=== PATIENT | female | born 1990 | race Caucasian/White ===

== ENCOUNTER 2024-01-12 23:25 | Observation (INO) ==
[2024-01-13] MEDS: SODIUM CHLORIDE 0.9% 1,000 ML IV ONE (00:09)
[2024-01-13 00:21] LABS: Appearance Urine Clear (Clear); Bacteria Urine Automated 1+ (None Seen); Bilirubin Urine Negative (Negative); Blood Urine Negative (Negative); Cast Urine Automated 0-2 /lpf (0-2); Color Urine Yellow; Epithelial Cell Urine Auto 0-2 /hpf (0-2); Glucose Urine UA Negative (Negative); Ketones Urine 1+ (Negative); Leukocyte Esterase Urine 2+ (Negative); Nitrite Urine Negative (Negative); Protein Urine Negative (Negative); Specific Gravity Urine 1.025 (1.000-1.030); Urobilinogen Urine Negative (Negative); WBC Urine Automated 21-50 /hpf (0-5)
[2024-01-13 00:37] LABS: Basophils # (auto) 0.06 K/uL (0.00-0.20); Basophils % (auto) 0.7 %; Eosinophils # (auto) 0.03 K/uL (0.00-0.50); Eosinophils % (auto) 0.4 %; Hematocrit (blood only) 43.6 % (37.0-47.0); Immature Granulocytes # (auto) 0.03 K/uL (0.01-0.20); Immature Granulocytes % (auto) 0.4 %; Lymphocytes # (auto) 0.61 K/uL (1.20-3.40); Lymphocytes % (auto) 7.2 %; Mean Corpuscular Hemoglobin 30.3 pg (25.0-34.0); Mean Corpuscular Hgb Conc 34.4 g/dL (32.0-36.0); Mean Corpuscular Volume 88.1 fL (80.0-100.0); Mean Platelet Volume 10.6 fL (9.4-12.4); Monocytes # (auto) 0.61 K/uL (0.11-0.59); Monocytes % (auto) 7.2 %; Neutrophils # (auto) 7.08 K/uL (1.40-6.50); Neutrophils % (auto) 84.1 %; Platelet Count 193 K/uL (130-400); RDW Coefficient of Variation 11.9 % (11.5-14.5); RDW Standard Deviation 38.4 fL (36.4-46.3); Red Blood Count 4.95 M/uL (4.20-5.40); White Blood Count 8.42 K/ul (4.8-10.8)
[2024-01-13 01:00] LABS: Albumin Globulin Ratio 1.5 (0.9-2); Albumin Level 4.1 gm/dl (3.4-5.0); BUN Creatinine Ratio 22.9 (10-20); Bilirubin,Total 0.4 mg/dl (0.2-1.0); Calcium 9.2 mg/dl (8.6-10.3); Est GFR (African American) 108.1 ml/min; Est GFR (Non-African American) 93.3 ml/min; Globulin 2.8 gm/dl (2.5-4.0); Magnesium 1.7 mg/dl (1.7-2.4); Potassium 3.8 mmol/L (3.5-5.1); Pregnancy Test, Serum Negative (Negative); Total Protein 6.9 gm/dl (6.0-8.3)
[2024-01-13 01:04] LABS: Adenovirus PCR Not Detected (NotDetected); Bordetella parapertussis PCR Not Detected (NotDetected); Bordetella pertussis PCR Not Detected (NotDetected); Chlamydia pneumoniae PCR Not Detected (NotDetected); Coronavirus 229E PCR Not Detected (NotDetected); Coronavirus CoV-2 (COVID19)PCR Not Detected (NotDetected); Coronavirus HKU1 PCR Not Detected (NotDetected); Coronavirus NL63 PCR Not Detected (NotDetected); Coronavirus OC43PCR Not Detected (NotDetected); Human Metapneumovirus PCR Not Detected (NotDetected); Influenza A PCR Not Detected (NotDetected); Influenza B PCR Not Detected (NotDetected); Mycoplasma pneumoniae PCR Not Detected (NotDetected); Parainfluenza Virus 1 PCR Not Detected (NotDetected); Parainfluenza Virus 2 PCR Not Detected (NotDetected); Parainfluenza Virus 3 PCR Not Detected (NotDetected); Parainfluenza Virus 4 PCR Not Detected (NotDetected); Respiratory Syncytial VirusPCR Not Detected (NotDetected); Rhinovirus/Enterovirus PCR Not Detected (NotDetected)
[2024-01-13] MEDS: KETOROLAC 30 MG/ML VIAL IV ONE (01:19)
--- NOTE | 2024-01-13 01:22 | Emergency Department Note ---
Impression & Plan Syncope, Acute electrocardiogram changes, UTI (urinary tract infection) Admit to the [facility] ED Provider Note NAME: DWAYNE DEMPSEY AGE: 33 SEX: Female INFORMANT: Patient ED PROVIDER(S): Vee Mathew DO CHIEF COMPLAINT: Syncope PLAN: Disposition: Admit to the [facility] MEDICAL DECISION MAKING: This is a 33-year-old female patient who presents to the emergency department after a syncopal episode at home. Patient had not been feeling well earlier in the day with diffuse bodyaches. She developed a headache and fever. Patient's fianc describes some shakiness for a short period of time with her jaw clenched when she passed out but no specific postictal episode. Laboratory studies revealed a urinalysis which was concerning for UTI. The patient was treated with IV Rocephin. There was no leukocytosis or anemia. Troponin was negative. was negative. Upper respiratory bio fire testing was negative. Glucose was 156. Renal function was normal. Patient was treated with IV Toradol for her diffuse bodyaches and received IV normal saline solution. Patient did have T wave inversion in the inferior leads which is a new finding compared to previous EKGs. In light of her syncopal event, I felt the patient would require further inpatient evaluation. Care/management discussed with: The patient, her fianc and her mother Triage Nursing notes: Reviewed and agree with them. Vital Signs: reviewed and remarkable for low-grade fever Additional History obtained from: Fianc and mother who are at the bedside Differential Diagnosis: Syncope, cardiac dysrhythmia, orthostasis, dehydration, Diagnostics, independently interpreted by me: ECG: Normal sinus rhythm with a first-degree AV block at a rate of 91 with T wave inversion in the inferior leads which is a new finding in comparison to a previous EKG. There is no ectopy. Cardiac Monitoring: Normal sinus rhythm at 85 HPI: 33 year old Female arrives for evaluation of syncope. Patient explains that around 2:00 this afternoon she began to not feel well with diffuse bodyaches. She then developed a headache and fever around 4 PM this afternoon. She got up off the couch and went upstairs to take a COVID test when she felt lightheaded and had a syncopal event. Her fianc held her upright but then she had a syncopal event where she clenched her teeth and began to slightly shake. He lowered her down to the ground. She came to fairly quickly and was aware of her surroundings and who he was. She denies ever having an episode like this in the past. 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 Pupils are equal, round, and reactive to light. Extraocular eye muscles are intact, and sclera are anicteric. Nose - moist nasal mucosa without discharge. Mouth - moist buccal mucosa. Oropharynx is nonerythematous and there is no tonsillar exudate or edema noted. Neck: Supple; no nuchal rigidity Heart: Regular rate and rhythm. There is a normal S1 and S2 with no murmurs, clicks, or gallops appreciated. Lungs: Clear to auscultation bilaterally with no wheezes, rales, or rhonchi. Abdomen: Soft, completely nontender, nondistended, with good bowel sounds. There are no palpable pulsatile masses or hepatosplenomegaly. There is no guarding, rigidity, or rebound noted. Extremities: No evidence of cyanosis, clubbing, or edema. There are easily palpable peripheral pulses. Skin: warm and dry with good turgor and no rashes. Emergency department course: The patient was evaluated in room B-5. A complete history and physical was performed. An order was placed for continuous cardiac monitoring. The patient was in a normal sinus rhythm at a rate of 85. A twelve-lead EKG was obtained as described above. Laboratory studies were drawn as above. A bio fire swab was obtained. Patient was bolused with IV normal saline solution and given a dose of IV Toradol for her body aches. Patient received IV Rocephin. I discussed the case with the [facility] Hospitalist and they will evaluate for further inpatient care. Past Med/Surg History Medical History (Updated 01/13/24 @ 18:26 by Vee Mathew DO) No pertinent past medical history Surgical History (Updated 01/13/24 @ 05:23 by Orly Hylton DO) H/O partial thyroidectomy Social History Smoking Status: Never smoker Second Hand Exposure: No; Do You Dip or Chew Tobacco: No; Tobacco Cessation Education Requested by Patient: No Hx Alcohol Use: Yes Hx Substance Use: No Preferred Language: Kazakh Communication Ability: Effective Assistant Attorney General Required: No Beliefs That Will Affect Care: None Current Living Situation: Significant Other Other Information That Helps Us Care for You: No Feels Safe at Home: Yes Safety Concerns: Feels Safe At This Time Assistive Devices: None Allergies Allergies Allergy/AdvReac Type Severity Reaction Status Date / Time erythromycin base AdvReac Intermediate Abdominal Verified 01/13/24 00:46 Pain Home Meds Home Medications Medication Instructions Recorded Confirmed famotidine 20 mg tablet 20 mg PO DAILY PRN 06/21/23 01/13/24 HEARTBURN/INDIGESTION levothyroxine 50 mcg tablet 50 mcg PO DAILYBB 06/21/23 01/13/24 norgestimate-ethinyl estradiol 1 tab PO DAILY 06/21/23 01/13/24 0.18 mg/0.215mg/0.25mg-35 mcg(28)tablet Results & Data (ED) Vital Signs Vital Signs - 24 hr 01/12/24 23:15 01/12/24 23:15 01/12/24 23:31 Temperature 37.7 C H Temperature Source Oral Pulse Rate 91 H Pulse Rate [Apical] Pulse Rate from SpO2 Sensor Pulse Rhythm Regular Pulse Rhythm [Apical] Pulse Strength Normal Pulse Strength [Apical] Respiratory Rate 18 Respiratory Effort / Characteristics Non-Labored Respiratory Depth Normal Respiratory Pattern Regular Blood Pressure 138/78 138/78 Blood Pressure [Right Arm] Blood Pressure Mean 98 100 Blood Pressure Mean [Right Arm] Blood Pressure Position [Right Arm] Pulse Oximetry 95 95 Oxygen Delivery Method Room Air Room Air Sepsis Recent Fever Within 48 Hours Yes Sepsis New/Unexplained Change in Mental Status Yes Sepsis Action Taken by Nursing No Action Required 01/12/24 23:32 01/12/24 23:32 01/12/24 23:40 Temperature Temperature Source Pulse Rate 95 H 99 H 98 H Pulse Rate [Apical] Pulse Rate from SpO2 Sensor 101 H 101 H Pulse Rhythm Pulse Rhythm [Apical] Pulse Strength Pulse Strength [Apical] Respiratory Rate 18 26 H Respiratory Effort / Characteristics Respiratory Depth Respiratory Pattern Blood Pressure Blood Pressure [Right Arm] Blood Pressure Mean Blood Pressure Mean [Right Arm] Blood Pressure Position [Right Arm] Pulse Oximetry 96 96 Oxygen Delivery Method Sepsis Recent Fever Within 48 Hours Sepsis New/Unexplained Change in Mental Status Sepsis Action Taken by Nursing 01/12/24 23:45 01/12/24 23:45 01/12/24 23:50 Temperature Temperature Source Pulse Rate 91 H 88 Pulse Rate [Apical] Pulse Rate from SpO2 Sensor 92 H 89 Pulse Rhythm Pulse Rhythm [Apical] Pulse Strength Pulse Strength [Apical] Respiratory Rate 15 14 Respiratory Effort / Characteristics Respiratory Depth Respiratory Pattern Blood Pressure 109/72 Blood Pressure [Right Arm] Blood Pressure Mean 92 Blood Pressure Mean [Right Arm] Blood Pressure Position [Right Arm] Pulse Oximetry 96 96 Oxygen Delivery Method Sepsis Recent Fever Within 48 Hours Sepsis New/Unexplained Change in Mental Status Sepsis Action Taken by Nursing 01/12/24 23:56 01/13/24 00:00 01/13/24 00:00 Temperature Temperature Source Pulse Rate 88 89 Pulse Rate [Apical] Pulse Rate from SpO2 Sensor 87 Pulse Rhythm Regular Pulse Rhythm [Apical] Pulse Strength Pulse Strength [Apical] Respiratory Rate 16 22 Respiratory Effort / Characteristics Respiratory Depth Respiratory Pattern Blood Pressure 112/77 Blood Pressure [Right Arm] Blood Pressure Mean 91 Blood Pressure Mean [Right Arm] Blood Pressure Position [Right Arm] Pulse Oximetry 95 96 Oxygen Delivery Method Room Air Sepsis Recent Fever Within 48 Hours Sepsis New/Unexplained Change in Mental Status Sepsis Action Taken by Nursing 01/13/24 00:10 01/13/24 00:14 01/13/24 00:15 Temperature Temperature Source Pulse Rate 88 86 Pulse Rate [Apical] Pulse Rate from SpO2 Sensor 88 86 Pulse Rhythm Pulse Rhythm [Apical] Pulse Strength Pulse Strength [Apical] Respiratory Rate 17 17 Respiratory Effort / Characteristics Respiratory Depth Respiratory Pattern Blood Pressure 124/77 Blood Pressure [Right Arm] Blood Pressure Mean 98 Blood Pressure Mean [Right Arm] Blood Pressure Position [Right Arm] Pulse Oximetry 96 96 Oxygen Delivery Method Sepsis Recent Fever Within 48 Hours Sepsis New/Unexplained Change in Mental Status Sepsis Action Taken by Nursing 01/13/24 00:20 01/13/24 00:30 01/13/24 00:30 Temperature Temperature Source Pulse Rate 85 85 Pulse Rate [Apical] Pulse Rate from SpO2 Sensor 87 84 Pulse Rhythm Pulse Rhythm [Apical] Pulse Strength Pulse Strength [Apical] Respiratory Rate 21 22 Respiratory Effort / Characteristics Respiratory Depth Respiratory Pattern Blood Pressure 123/77 Blood Pressure [Right Arm] Blood Pressure Mean 87 Blood Pressure Mean [Right Arm] Blood Pressure Position [Right Arm] Pulse Oximetry 95 96 Oxygen Delivery Method Sepsis Recent Fever Within 48 Hours Sepsis New/Unexplained Change in Mental Status Sepsis Action Taken by Nursing 01/13/24 00:40 01/13/24 00:45 01/13/24 00:45 Temperature Temperature Source Pulse Rate 81 82 Pulse Rate [Apical] Pulse Rate from SpO2 Sensor 81 81 Pulse Rhythm Pulse Rhythm [Apical] Pulse Strength Pulse Strength [Apical] Respiratory Rate 21 16 Respiratory Effort / Characteristics Respiratory Depth Respiratory Pattern Blood Pressure 118/78 Blood Pressure [Right Arm] Blood Pressure Mean 95 Blood Pressure Mean [Right Arm] Blood Pressure Position [Right Arm] Pulse Oximetry 98 97 Oxygen Delivery Method Sepsis Recent Fever Within 48 Hours Sepsis New/Unexplained Change in Mental Status Sepsis Action Taken by Nursing 01/13/24 00:50 01/13/24 01:00 01/13/24 01:00 Temperature Temperature Source Pulse Rate 78 79 Pulse Rate [Apical] Pulse Rate from SpO2 Sensor 79 79 Pulse Rhythm Pulse Rhythm [Apical] Pulse Strength Pulse Strength [Apical] Respiratory Rate 18 27 H Respiratory Effort / Characteristics Respiratory Depth Respiratory Pattern Blood Pressure 131/75 Blood Pressure [Right Arm] Blood Pressure Mean 95 Blood Pressure Mean [Right Arm] Blood Pressure Position [Right Arm] Pulse Oximetry 98 98 Oxygen Delivery Method Sepsis Recent Fever Within 48 Hours Sepsis New/Unexplained Change in Mental Status Sepsis Action Taken by Nursing 01/13/24 01:10 01/13/24 01:15 01/13/24 01:15 Temperature Temperature Source Pulse Rate 89 77 Pulse Rate [Apical] Pulse Rate from SpO2 Sensor 91 H 77 Pulse Rhythm Pulse Rhythm [Apical] Pulse Strength Pulse Strength [Apical] Respiratory Rate 23 23 Respiratory Effort / Characteristics Respiratory Depth Respiratory Pattern Blood Pressure 131/71 Blood Pressure [Right Arm] Blood Pressure Mean 87 Blood Pressure Mean [Right Arm] Blood Pressure Position [Right Arm] Pulse Oximetry 98 96 Oxygen Delivery Method Sepsis Recent Fever Within 48 Hours Sepsis New/Unexplained Change in Mental Status Sepsis Action Taken by Nursing 01/13/24 01:20 01/13/24 01:44 01/13/24 01:44 Temperature Temperature Source Pulse Rate 83 66 Pulse Rate [Apical] Pulse Rate from SpO2 Sensor 83 67 Pulse Rhythm Pulse Rhythm [Apical] Pulse Strength Pulse Strength [Apical] Respiratory Rate 24 19 Respiratory Effort / Characteristics Respiratory Depth Respiratory Pattern Blood Pressure 122/66 Blood Pressure [Right Arm] Blood Pressure Mean 84 Blood Pressure Mean [Right Arm] Blood Pressure Position [Right Arm] Pulse Oximetry 97 96 Oxygen Delivery Method Sepsis Recent Fever Within 48 Hours Sepsis New/Unexplained Change in Mental Status Sepsis Action Taken by Nursing 01/13/24 02:00 01/13/24 02:00 01/13/24 02:00 Temperature Temperature Source Pulse Rate 66 Pulse Rate [Apical] 67 Pulse Rate from SpO2 Sensor 65 Pulse Rhythm Pulse Rhythm [Apical] Regular Pulse Strength Pulse Strength [Apical] Normal Respiratory Rate 16 13 Respiratory Effort / Characteristics Non-Labored Respiratory Depth Normal Respiratory Pattern Regular Blood Pressure 119/63 Blood Pressure [Right Arm] 119/63 Blood Pressure Mean 74 Blood Pressure Mean [Right Arm] 81 Blood Pressure Position [Right Arm] Sitting Pulse Oximetry 96 97 Oxygen Delivery Method Room Air Sepsis Recent Fever Within 48 Hours Sepsis New/Unexplained Change in Mental Status Sepsis Action Taken by Nursing 01/13/24 02:30 01/13/24 02:30 01/13/24 03:00 Temperature Temperature Source Pulse Rate 71 Pulse Rate [Apical] Pulse Rate from SpO2 Sensor 68 Pulse Rhythm Pulse Rhythm [Apical] Pulse Strength Pulse Strength [Apical] Respiratory Rate 12 Respiratory Effort / Characteristics Respiratory Depth Respiratory Pattern Blood Pressure 126/72 121/72 Blood Pressure [Right Arm] Blood Pressure Mean 94 84 Blood Pressure Mean [Right Arm] Blood Pressure Position [Right Arm] Pulse Oximetry 97 Oxygen Delivery Method Sepsis Recent Fever Within 48 Hours Sepsis New/Unexplained Change in Mental Status Sepsis Action Taken by Nursing 01/13/24 03:00 01/13/24 03:22 01/13/24 03:24 Temperature 37.1 C Temperature Source Oral Pulse Rate 68 Pulse Rate [Apical] 70 Pulse Rate from SpO2 Sensor 68 Pulse Rhythm Pulse Rhythm [Apical] Regular Pulse Strength Pulse Strength [Apical] Normal Respiratory Rate 16 18 Respiratory Effort / Characteristics Non-Labored Respiratory Depth Normal Respiratory Pattern Regular Blood Pressure Blood Pressure [Right Arm] 121/72 Blood Pressure Mean Blood Pressure Mean [Right Arm] 88 Blood Pressure Position [Right Arm] Pulse Oximetry 96 97 Oxygen Delivery Method Room Air Sepsis Recent Fever Within 48 Hours Sepsis New/Unexplained Change in Mental Status Sepsis Action Taken by Nursing 01/13/24 03:26 01/13/24 03:30 01/13/24 03:30 Temperature Temperature Source Pulse Rate 65 72 Pulse Rate [Apical] Pulse Rate from SpO2 Sensor 72 Pulse Rhythm Pulse Rhythm [Apical] Pulse Strength Pulse Strength [Apical] Respiratory Rate 18 Respiratory Effort / Characteristics Respiratory Depth Respiratory Pattern Blood Pressure 126/72 Blood Pressure [Right Arm] Blood Pressure Mean 80 Blood Pressure Mean [Right Arm] Blood Pressure Position [Right Arm] Pulse Oximetry 96 Oxygen Delivery Method Sepsis Recent Fever Within 48 Hours Sepsis New/Unexplained Change in Mental Status Sepsis Action Taken by Nursing 01/13/24 03:40 Temperature 37.1 C Temperature Source Oral Pulse Rate Pulse Rate [Apical] 62 Pulse Rate from SpO2 Sensor Pulse Rhythm Pulse Rhythm [Apical] Regular Pulse Strength Pulse Strength [Apical] Normal Respiratory Rate 16 Respiratory Effort / Characteristics Non-Labored Respiratory Depth Normal Respiratory Pattern Regular Blood Pressure Blood Pressure [Right Arm] 126/72 Blood Pressure Mean Blood Pressure Mean [Right Arm] 90 Blood Pressure Position [Right Arm] Lying Pulse Oximetry 95 Oxygen Delivery Method Room Air Sepsis Recent Fever Within 48 Hours Sepsis New/Unexplained Change in Mental Status Sepsis Action Taken by Nursing Laboratory Data 01/13/24 06:37 01/13/24 06:37 Lab Results 01/12/24 01/12/24 01/13/24 Range/Units 23:40 23:56 02:30 WBC 8.42 (4.8-10.8) K/ul RBC 4.95 (4.20-5.40) M/uL Hgb 15.0 (12.0-16.0) g/dl Hct 43.6 (37.0-47.0) % MCV 88.1 (80.0-100.0) fL MCH 30.3 (25.0-34.0) pg MCHC 34.4 (32.0-36.0) g/dL RDW Std Deviation 38.4 (36.4-46.3) fL RDW Coeff of Bertin 11.9 (11.5-14.5) % Plt Count 193 (130-400) K/uL MPV 10.6 (9.4-12.4) fL Immature Gran % (Auto) 0.4 % Neut % (Auto) 84.1 % Lymph % (Auto) 7.2 % [place] % (Auto) 7.2 % Eos % (Auto) 0.4 % Baso % (Auto) 0.7 % Neut # (Auto) 7.08 H (1.40-6.50) K/uL Lymph # (Auto) 0.61 L (1.20-3.40) K/uL [place] # (Auto) 0.61 H (0.11-0.59) K/uL Eos # (Auto) 0.03 (0.00-0.50) K/uL Baso # (Auto) 0.06 (0.00-0.20) K/uL Immature Gran # (Auto) 0.03 (0.01-0.20) K/uL Sodium 134 L (136-145) mmol/L Potassium 3.8 (3.5-5.1) mmol/L Chloride 103 (98-107) mmol/L Carbon Dioxide 23 (21-32) mmol/L Anion Gap 8 (3-11) BUN 19 (6-23) mg/dl Creatinine 0.83 (0.6-1.2) mg/dl Est Cr Clr Drug Dosing 84.0 ml/min Est GFR ( Amer) 108.1 ml/min Est GFR (Non-Af Amer) 93.3 ml/min BUN/Creatinine Ratio 22.9 H (10-20) Glucose 156 H (70-99(Fasting)) mg/dl Lactate 1.1 (0.4-2.0) mmol/L Calcium 9.2 (8.6-10.3) mg/dl Magnesium 1.7 (1.7-2.4) mg/dl Total Bilirubin 0.4 (0.2-1.0) mg/dl AST 18 (13-39) U/L ALT 12 (7-52) U/L Alkaline Phosphatase 65 (34-104) U/L Troponin I High Sens 6.4 (0-14) pg/ml Total Protein 6.9 (6.0-8.3) gm/dl Albumin 4.1 (3.4-5.0) gm/dl Globulin 2.8 (2.5-4.0) gm/dl Albumin/Globulin Ratio 1.5 (0.9-2) Procalcitonin 0.06 (0-0.5) ng/ml HCG, Qual Negative (Negative) Urine Color Yellow Urine Appearance Clear (Clear) Urine pH 6.0 (4.5-7.5) Ur Specific Gantt 1.025 (1.000-1.030) Urine Protein Negative (Negative) Urine Glucose (UA) Negative (Negative) Urine Ketones 1+ H (Negative) Urine Blood Negative (Negative) Urine Nitrite Negative (Negative) Urine Bilirubin Negative (Negative) Urine Urobilinogen Negative (Negative) Ur Leukocyte Esterase 2+ H (Negative) Urine WBC (Auto) 21-50 H (0-5) /hpf Urine RBC (Auto) 6-10 H (0-2) /hpf U Hyaline Cast (Auto) 0-2 (0-2) /lpf U Epithel Cells (Auto) 0-2 (0-2) /hpf Urine Bacteria (Auto) 1+ H (None Seen) Adenovirus (PCR) Not Detected (NotDetected) B. pertussis DNA (PCR) Not Detected (NotDetected) B.parapertussis DNA PCR Not Detected (NotDetected) C. pneumoniae DNA (PCR) Not Detected (NotDetected) Coronavirus OC43 (PCR) Not Detected (NotDetected) Coronavirus HKU1 (PCR) Not Detected (NotDetected) Coronavirus 229E (PCR) Not Detected (NotDetected) SARS-CoV-2 (PCR) Not Detected (NotDetected) Coronavirus NL63 (PCR) Not Detected (NotDetected) Human Metapneumovir PCR Not Detected (NotDetected) Influenza Type A (PCR) Not Detected (NotDetected) Influenza Type B (PCR) Not Detected (NotDetected) M. pneumoniae (PCR) Not Detected (NotDetected) Parainfluenza 1 (PCR) Not Detected (NotDetected) Parainfluenza 2 (PCR) Not Detected (NotDetected) Parainfluenza 3 (PCR) Not Detected (NotDetected) Parainfluenza 4 (PCR) Not Detected (NotDetected) RSV (PCR) Not Detected (NotDetected) Entero/Rhino (PCR) Not Detected (NotDetected) Administered Medications Levothyroxine Sodium (Levothyroxine Sodium 50 Mcg Tablet) 50 mcg PO DAILYBB [facility] Stop: 02/12/24 06:29 Last Admin: 01/13/24 07:38 Dose: 50 mcg Documented By: TYRONE Miscellaneous (Norgestimate-Ethinyl Estradiol 0.18/0.215/0.25 Mg-35 Mcg (28) Tablet-Order Awaiting Action) 1 each N/A QS ADAN Stop: 02/12/24 07:59 Last Admin: 01/13/24 15:25 Dose: Not Given Documented By: Admin: 01/13/24 07:39 Dose: Not Given Documented By: CAW Simethicone (Simethicone 80 Mg Chew) 80 mg PO Q6H PRN PRN Reason: Flatulence Stop: 02/12/24 09:50 Last Admin: 01/13/24 10:56 Dose: 80 mg Documented By: CAW Discontinued Medications Sodium Chloride (Nss) 1,000 mls @ 999 mls/hr IV .Q1H1M ONE Stop: 01/13/24 00:56 Last Infusion: 01/13/24 01:16 Dose: Infused Documented By: Admin: 01/13/24 00:09 Dose: 999 mls/hr Documented By: KG Ceftriaxone Sodium (Rocephin) 1,000 mg in 50 mls @ 100 mls/hr IV NOW STA Stop: 01/13/24 02:52 Last Infusion: 01/13/24 03:24 Dose: Infused Documented By: Admin: 01/13/24 02:41 Dose: 100 mls/hr Documented By: KG Lactated Ringer's (Lr) 1,000 mls @ 125 mls/hr IV .Q8H ADAN Stop: 01/13/24 13:39 Last Infusion: 01/13/24 15:22 Dose: Infused Documented By: Admin: 01/13/24 06:10 Dose: 125 mls/hr Documented By: IDD Ketorolac Tromethamine (Ketorolac 30 Mg/Ml Vial) 30 mg IV NOW ONE Stop: 01/13/24 01:14 Last Admin: 01/13/24 01:19 Dose: 30 mg Documented By: KG Discharge Plan Visit Data Chief Complaint: Syncope Stated Complaint: SYNCOPE, LOWER LEG ACHY ED Provider: Vee Mathew Discharge Problem: Syncope, Acute electrocardiogram changes, UTI (urinary tract infection) Patient Disposition: Admitted As Inpatient Discharge Instructions Interventions: ED Discharge Assessment Last Done: 01/13/24 15:27 Discharge Problem: Syncope Qualifiers: Syncope type: unspecified Qualified Code(s): R55 - Syncope and collapse
[2024-01-13 01:51] LABS: Troponin I High Sensitivity 6.4 pg/ml (0-14)
[2024-01-13] MEDS: cefTRIAXone SODIUM 1,000 MG/50 ML BAG IV STA (02:41)
--- NOTE | 2024-01-13 03:35 | History & Physical Report ---
Date of Service January 13, 2024 Assessment & Plan (1) Episode of syncope: Plan: - prodromal symptoms consistent with vasovagal, but given cardiac history concern for cardiac cause - given symptoms and prodrome, less likely neurologic - EKG with t wave inversions inferior and anterior leads; will plan to repeat qAM - Last TTE from 09/2023 with EF= 55-60%, prior TTE with LV function borderline with EF 45 to 50% and mild MR with borderline MV prolapse - repeat TTE pending- considered endocarditis, given infectious symptoms/EKG changes - no leukocytosis, otherwise no signs of infection. Will continue ceftriaxone for presumptive UTI - No URI symptoms, no cellulitis - Will order tick studies and ESR/CRP, THA- could consider arterial hypercoagulable studies (2) UTI (urinary tract infection): Plan: - treat with ceftriaxone as per above (3) Mitral regurgitation: Plan: - present on prior TTE, not seen on most recent - repeat TTE pending (4) H/O partial thyroidectomy: Plan: - continue levothyroxine - repeat TSH/free T4 History of Present Illness Primary Care Provider: Fidelina Duarte 33 year old female with a past medical history of mitral regurgitation, partial thyroidectomy presenting after syncopal episode. Was in normal health up until 1400 this afternoon. Started with subjective fever, body aches. Went to go up stairs this evening to take a COVID test. Stood up and felt lightheaded, vision went out and then LOC for about 30 seconds. witnessed. No urinary incontinence, tongue biting. Was clenching jaw. Tired after, but no post-ictal period. Was never had an event like this before. Get start her menstrual period today. Denies chest pain, dyspnea, nausea/vomiting, diarrhea. Crampy abdominal pain with period. Increased urinary frequency, but otherwise no urinary symptoms. In ED: UA consistent with UTI. EKG with NSR with 1st degree AV block- T wave inversions inferior and anterior leads- trop=6.4. Allergies Allergy/AdvReac Type Severity Reaction Status Date / Time erythromycin base AdvReac Intermediate Abdominal Verified 01/13/24 00:46 Pain Home Medications Medication Instructions Recorded Confirmed Type famotidine 20 mg tablet 20 mg PO DAILY PRN 06/21/23 01/13/24 History HEARTBURN/INDIGESTION levothyroxine 50 mcg tablet 50 mcg PO DAILYBB 06/21/23 01/13/24 History norgestimate-ethinyl estradiol 1 tab PO DAILY 06/21/23 01/13/24 History 0.18 mg/0.215mg/0.25mg-35 mcg(28)tablet Past Med/Surg History Medical History (Updated 01/13/24 @ 18:26 by Vee Mathew DO) No pertinent past medical history Surgical History (Updated 01/13/24 @ 05:23 by Orly Hylton DO) H/O partial thyroidectomy Social History Smoking Status: Never smoker Second Hand Exposure: No; Do You Dip or Chew Tobacco: No; Tobacco Cessation Education Requested by Patient: No Hx Alcohol Use: Yes Hx Substance Use: No Preferred Language: [place] Communication Ability: Effective Vessel Traffic Officer Required: No Beliefs That Will Affect Care: None Current Living Situation: Significant Other Other Information That Helps Us Care for You: No Feels Safe at Home: Yes Safety Concerns: Feels Safe At This Time Assistive Devices: None Review of Systems Review of Systems: As per above Physical Exam Physical Exam: Constitutional: well-appearing, no acute distress HEENT: NCAT, no conjunctival injection CV: regular rhythm, no murmur appreciated, extremities well-perfused, no LE edema Resp: CTABL, no wheezes/rales/rhonchi appreciated, no increased work of breathing GI: soft, nondistended, nontender, No CVA tenderness MSK: no gross deformities appreciated Skin: warm, dry, no rash appreciated Neuro: alert, oriented, no focal neurologic deficit appreciated Results & Data Results & Data Vital Signs (Past 12 Hours) Vital Signs Temp Pulse Pulse Resp BP BP Pulse Ox 01/13/24 02:00 67 16 119/63 96 01/13/24 01:20 83 24 97 01/13/24 01:15 131/71 01/13/24 01:15 77 23 96 01/13/24 01:10 89 23 98 01/13/24 01:00 131/75 01/13/24 01:00 79 27 H 98 01/13/24 00:50 78 18 98 01/13/24 00:45 82 16 97 01/13/24 00:45 118/78 01/13/24 00:40 81 21 98 01/13/24 00:30 85 22 96 01/13/24 00:30 123/77 01/13/24 00:20 85 21 95 01/13/24 00:15 124/77 01/13/24 00:14 86 17 96 01/13/24 00:10 88 17 96 01/13/24 00:00 89 22 96 01/13/24 00:00 112/77 01/12/24 23:56 88 16 95 01/12/24 23:50 88 14 96 01/12/24 23:45 109/72 01/12/24 23:45 91 H 15 96 01/12/24 23:40 98 H 26 H 96 01/12/24 23:32 99 H 18 96 01/12/24 23:32 95 H 01/12/24 23:31 138/78 01/12/24 23:15 95 01/12/24 23:15 37.7 C H 91 H 18 138/78 95 O2 Del Method 01/13/24 02:00 Room Air 01/13/24 01:20 01/13/24 01:15 01/13/24 01:15 01/13/24 01:10 01/13/24 01:00 01/13/24 01:00 01/13/24 00:50 01/13/24 00:45 01/13/24 00:45 01/13/24 00:40 01/13/24 00:30 01/13/24 00:30 01/13/24 00:20 01/13/24 00:15 01/13/24 00:14 01/13/24 00:10 01/13/24 00:00 01/13/24 00:00 01/12/24 23:56 Room Air 01/12/24 23:50 01/12/24 23:45 01/12/24 23:45 01/12/24 23:40 01/12/24 23:32 01/12/24 23:32 01/12/24 23:31 01/12/24 23:15 Room Air 01/12/24 23:15 Room Air Supervising Physician Co-Signing Physician Notes Attending addendum: I have physically seen this patient, have supervised the medical residents activities, and agree with the H&P unless as otherwise noted. Assessment and Plan: Syncopal episode- Vasovagal prodrome x 2 EKG with new T wave inversions inferiorly and anteroseptally The patient will be admitted to telemetry for serial cardiac enzymes, serial EKG's, cardiac rhythm monitoring and a 2-D echocardiogram with Dopplers. Order tick panel Order ESR May need hypercoagulable arterial workup UTI- Follow urine culture and sensitivity Has no overt urinary symptoms, but could be associated with her presenting sy mptoms IV fluids as noted Hypothyroidism/history of partial thyroidectomy- Continue levothyroxine TSH free T4 ordered Resident Activity Tracking Resident Involvement: Resident Care Provided Care Provided: Adult Hospital Medicine
[2024-01-13] MEDS ORDERED: KETOROLAC TROMETHAMINE 15 MG/ML VIAL IV PRN (05:40)
[2024-01-13] MEDS ORDERED: FAMOTIDINE 20 MG TAB PO PRN (05:40)
[2024-01-13] MEDS ORDERED: ACETAMINOPHEN 500 MG TAB PO PRN (05:40)
[2024-01-13] MEDS: LACTATED RINGER'S 1,000 ML IV SCH (06:10)
--- NOTE | 2024-01-13 07:09 | Hospitalist Progress Note ---
Date of Service January 13, 2024 Assessment & Plan (1) Episode of syncope: Plan: - prodromal symptoms consistent with vasovagal, but given cardiac history concern for other cardiac cause and fever such as endocarditis vs pericarditis vs tick born disease vs autoimmune disorders - given symptoms and prodrome, less likely to be neurologic in etiology - Last TTE from 09/2023 : EF= 55-60%, prior TTE with LV function borderline with EF 45 to 50% and mild MR with borderline MV prolapse - EKG: on admission sinus rhythm with 1st degree A-V block - Repeat EKG this AM: Sinus bradycardia, rightwards axis. Nonspecific T wave abnormality no longer evident in Lateral leads - Orthostatic BPs ordered - Labs: no electrolytes disturbances - TSH/T4: wnl - CRP: 1.63 - Lyme disease, Babesia, anaplasmosis: negative - THA pending, Blood culture/urine culture pending - Repeat ECHO today- Pending results - Continue heart monitor - labs am (2) UTI (urinary tract infection): Plan: - Patient refers mild dysuria - UA: Leukocytes esterase, wbc -IV ceftriaxone (3) Mitral regurgitation: Plan: - present on prior TTE - repeat TTE pending (4) H/O partial thyroidectomy: Plan: - TSH/T4 wnl - continue levothyroxine Plan DVT: Low risk, ambulation Diet: Regular Disposition: Med/ Surg with Telemetry Admission and Anticipated Discharge Date Admission Date: January 13, 2024 Supervising Physician Co-Signing Physician Notes Resident supervision note: 33 y/o female with PMH of mitral regurgitation, partial thyroidectomy here after fever, body aches and syncopal episode. Patient had a hx of SOB and palpitations after COVID infection that was followed by Cardiology. At that time water regulator and valve repairer only showed PAC/PVCs. Echo: LV function borderline with EF 45 to 50% and mild MR with borderline MV prolapse. With prodrome symptoms, cardiac history and fever will continue to do a full work up to rule out encarditis, pericarditis, tick born disease illness, autoimmune disorder or other cardiac etiology. No neuro deficits, low concern of stroke or malignancy. Will continue to monitor. Attending Physician Supervision Note: I independently interviewed and examined the patient and verified the vick history and physical, reviewed labs and image studies and agree with findings and care plan noted above. Fever - work up in progress as outlined above. Syncope - likely vasovagal in setting of high fever. Monitor of conduction related pathology. EKG changes - with fever. initial testing for lyme and other tick borne illness is negative. follow. Abnormal UA - culture pending. Doc Contreras is a 33 year-old female with a PMH significant for mitral regurgitation, who presented to the ED yesterday after a syncopal episode. She states that yesterday around 1430 she began to feel unwell and developed body aches. By arou nd 1600 she felt feverish and notes a temperature of 101 and 102 F when taking at home (tympanically). Around 1930 she got up from the couch began walking up stairs and suddenly felt lightheaded. She notes that after climbing up the stairs she lost her vision and had LOC. Her who witnessed this event was able to hold onto her during this event. She reports only recalling waking up on the floor in her husbands arms. She reports no urinary incontinence or tongue biting. However, notes that she was clenching her jaw. She notes that she was slightly dizzy and tired after the event, but no post-ictal phase. She has never had an event like this before. She notes having some crampy abdominal pain today associated with her menstrual period. She also notes some increased urinary frequency, dysuria, and a red tint to her urine yesterday. She denies any chest pain, dyspnea, nausea, vomiting, or diarrhea. Patient also endorses a history of palpitations and reduced exercise tolerance since her COVID infection in May 2023. She had episodes of tachycardia from May-Aug 2023. She follows with [facility] and notes as of late her heart rate has returned to baseline around 60-70 bpm. History of partial thyroidectomy d/t benign thyroid tumor. Today, she feels much better. Her appetite has been good. She ate breakfast fine. Is able to get up and use the bathroom without having any lightheadedness or dizziness. She does note having some fatigue and menstrual cramps. Review of Systems Review of Systems: As per above Physical Exam Constitutional: WD/WN, vitals as above Respiratory: normal respiratory effort, lungs clear to auscultation Cardiovascular: RRR, no murmur, no edema Gastrointestinal (Abdomen): normal bowel sounds, soft, nontender, no hepatosplenomegaly Skin: no rashes, warm and dry Results & Data Results & Data Vital Signs (Past 12 Hours) Vital Signs Temp Pulse Pulse Resp BP BP Pulse Ox 01/13/24 06:00 01/13/24 06:00 54 L 18 102/60 98 01/13/24 03:40 37.1 C 62 16 126/72 95 01/13/24 03:26 65 01/13/24 03:24 37.1 C 01/13/24 03:22 70 18 121/72 97 01/13/24 02:00 67 16 119/63 96 01/13/24 01:20 83 24 97 01/13/24 01:15 131/71 01/13/24 01:15 77 23 96 01/13/24 01:10 89 23 98 01/13/24 01:00 131/75 01/13/24 01:00 79 27 H 98 01/13/24 00:50 78 18 98 01/13/24 00:45 82 16 97 01/13/24 00:45 118/78 01/13/24 00:40 81 21 98 01/13/24 00:30 85 22 96 01/13/24 00:30 123/77 01/13/24 00:20 85 21 95 01/13/24 00:15 124/77 01/13/24 00:14 86 17 96 01/13/24 00:10 88 17 96 01/13/24 00:00 89 22 96 01/13/24 00:00 112/77 01/12/24 23:56 88 16 95 01/12/24 23:50 88 14 96 01/12/24 23:45 109/72 01/12/24 23:45 91 H 15 96 01/12/24 23:40 98 H 26 H 96 01/12/24 23:32 99 H 18 96 01/12/24 23:32 95 H 01/12/24 23:31 138/78 01/12/24 23:15 95 01/12/24 23:15 37.7 C H 91 H 18 138/78 95 Pulse Ox O2 Del Method O2 Del Method 01/13/24 06:00 98 Room Air 01/13/24 06:00 Room Air 01/13/24 03:40 Room Air 01/13/24 03:26 01/13/24 03:24 01/13/24 03:22 Room Air 01/13/24 02:00 Room Air 01/13/24 01:20 01/13/24 01:15 01/13/24 01:01/13/24 01:01/13/24 01:00 01/13/24 01:00 01/13/24 00:50 01/13/24 00:45 01/13/24 00:45 01/13/24 00:40 01/13/24 00:30 01/13/24 00:30 01/13/24 00:20 01/13/24 00:15 01/13/24 00:14 01/13/24 00:10 01/13/24 00:00 01/13/24 00:00 01/12/24 23:56 Room Air 01/12/24 23:50 01/12/24 23:45 01/12/24 23:45 01/12/24 23:40 01/12/24 23:32 01/12/24 23:32 01/12/24 23:31 01/12/24 23:15 Room Air 01/12/24 23:15 Room Air Resident Activity Tracking Resident Involvement: Resident Care Provided Care Provided: Adult Hospital Medicine
[2024-01-13 07:24] LABS: Basophils # (auto) 0.03 K/uL (0.00-0.20); Basophils % (auto) 0.6 %; Eosinophils # (auto) 0.01 K/uL (0.00-0.50); Eosinophils % (auto) 0.2 %; Hematocrit (blood only) 38.6 % (37.0-47.0); Hemoglobin 13.1 g/dl (12.0-16.0); Immature Granulocytes # (auto) 0.01 K/uL (0.01-0.20); Immature Granulocytes % (auto) 0.2 %; Lymphocytes # (auto) 0.82 K/uL (1.20-3.40); Lymphocytes % (auto) 16.9 %; Mean Corpuscular Hemoglobin 30.2 pg (25.0-34.0); Mean Corpuscular Hgb Conc 33.9 g/dL (32.0-36.0); Mean Corpuscular Volume 88.9 fL (80.0-100.0); Mean Platelet Volume 10.5 fL (9.4-12.4); Monocytes # (auto) 0.37 K/uL (0.11-0.59); Monocytes % (auto) 7.6 %; Neutrophils # (auto) 3.62 K/uL (1.40-6.50); Neutrophils % (auto) 74.5 %; Platelet Count 177 K/uL (130-400); RDW Coefficient of Variation 11.9 % (11.5-14.5); Red Blood Count 4.34 M/uL (4.20-5.40); White Blood Count 4.86 K/ul (4.8-10.8)
[2024-01-13 07:38] LABS: Albumin Globulin Ratio 1.5 (0.9-2); Albumin Level 3.4 gm/dl (3.4-5.0); BUN Creatinine Ratio 18.9 (10-20); Bilirubin,Total 0.3 mg/dl (0.2-1.0); C Reactive Protein 1.63 mg/dl (0-0.5); Creatinine Clr Calc Pharmacy 94.2 ml/min; Est GFR (African American) 124.2 ml/min; Est GFR (Non-African American) 107.2 ml/min; Globulin 2.2 gm/dl (2.5-4.0); Magnesium 1.8 mg/dl (1.7-2.4); Potassium 3.9 mmol/L (3.5-5.1); Total Protein 5.6 gm/dl (6.0-8.3)
[2024-01-13] MEDS: LEVOTHYROXINE SODIUM 50 MCG TABLET PO SCH (07:38)
[2024-01-13 07:53] LABS: Thyroid Stimulating Hormone 1.776 uIu/ml (0.300-4.500)
[2024-01-13 07:55] LABS: T4 Free Thyroxine 0.83 ng/dl (0.61-1.60)
[2024-01-13 08:08] LABS: RBC Morphology Unremarkable
[2024-01-13] MEDS: SIMETHICONE 80 MG CHEW PO PRN (10:56)
[2024-01-13 17:43] LABS: Amphetamines+Metham, Urine Neg (Neg); Barbiturates, Urine Neg (Neg); Benzodiazepine, Urine Neg (Neg); Cocaine, Urine Neg (Neg); MDMA (Ecstacy), Urine Neg (Neg); Marijuana, Urine Neg (Neg); Methadone, Urine Neg (Neg); Opiate, Urine Neg (Neg); Phencyclidine, Urine Neg (Neg)
--- NOTE | 2024-01-13 19:05 | Billing Data ---
Date of Service January 13, 2024 Coding Level of Care Code 68811 INT INP/OBS CARE
[2024-01-14] MEDS: cefTRIAXone SODIUM 1,000 MG/50 ML BAG IV SCH (02:39)
--- OUTSIDE RECORDS SUMMARY | 2024-01-14 03:40 | External Medical Summary | Summary of Care ---
Author Name Unknown Organization [facility] Address [address] [facility] [place] [address] Care Team Providers Care Program Paraprofessional Name Role Phone Paula Jesus PA-C Primary Care Provide r Reason for Visit * Reason Comments eRx-Medication Refill Encounter Details Date Type Department Care Team (Late st Contact Info) Description 10/23/2023 Refill Family Medicine, [facility] [address] [facility] [address] [place] [phone] Linda Salinas PA-C [address] [facility] [address] [facility] [address] [place] [address] Allergies Active Allergy Reactions Criticality Noted Date Comments Erythromycin 12/17/2001 severe stomach cramps documented as of this encounter (statuses as of 10/26/2023) Medications Medication Sig Dispensed Refills Start Date End Date Status Famotidine 20 MG Oral Tablet (Pepcid)Indicatio ns:Unspecified abdominal pain TAKE 1 TABLET BY MOUTH EVERYDAY AT BEDTIME Strength: 20 mg 90 Tablet 3 10/22/2022 Active Norgestim-Eth Estrad Triphasic 0.18/0.215/0.25 MG-35 MCG Oral TabletIndications :Encounter for general adult medical examination without abnormal findings Take 1 Tablet by mouth in the morning. 84 Tablet 1 08/27/2023 Active Levothyroxine Sodium 50 MCG Oral Tablet (Levoxyl) TAKE 1 TABLET BY MOUTH ONCE DAILY 30 Tablet 11 10/26/2023 Active Levothyroxine Sodium 50 MCG Oral Tablet (Levoxyl) TAKE 1 TABLET BY MOUTH DAILY .SCHEDULE ROUTINE VISIT FOR REFILLS 90 Tablet 3 10/22/2022 10/26/2023 Discontinued documented as of this encounter (statuses as of 10/26/2023) Immunizations Name Administration Dates Next Due Meningococcal Conjugate Vaccine (Menactra/Menveo ) 04/06/2007 TDAP (age 11 and older)(Adacel) 03/25/2008 Varicella Vaccine (Chicken Pox) 04/06/2007 documented as of this encounter Social History Tobacco Use Types Packs/Day Years Used Date Smoking Tobacco: Never Alcohol Use Standard Drinks/Week Comments No 0 (1 standard drink = 0.6 oz pur e alcohol) PHQ-2 Answer Date Recorded PHQ Adult Total Score 0 08/13/2023 Sex and Gender Information Value Date Recorded Sex Assigned at Not on file Gender Identity Not on file Sexual Orientation Not on file Job Start Date Occupation Industry Not on file Not on file Not on file documented as of this encounter Miscellaneous Notes * Telephone Encounter - Paula Jesus PA-C - 10/26/2023 11:54 AM EST Signed Prescriptions: Disp Refills Levothyroxine Sodium 50 MCG Oral Tablet (L*30 Tab*11 Sig: TAKE 1TABLET BY MOUTH ONCE DAILYAuthorizing Provider: PAULA JESUS * Telephone Encounter - Alexia Glez OSA - 10/26/2023 10:29 AM ESTPending Prescriptions: Disp Refills Levothyroxine Sodium 50 MCG Oral Tablet (L*30 Tab*11 Sig: TAKE 1 TABLET BY MOUTH ONCE DAILY documented in this encounter Plan of Treatment Upcoming Encounters Date Type Department Care Team (Late st Contact Info) Description 08/15/2024 11:30 AM EST Office Visit [facility] [address] [facility] [address] [place] [phone] Paula Jesus PA-C [address] [place] [address] Health Maintenance Due Date Last Done Comments COVID-19 Vaccine (#1) 04/29/1992 HIV Screening 2006 Hepatitis C Screening 2009 Pap Smear 2012 DTaP,Tdap,and Td Vaccines (7 - Td or Tdap) 03/25/2018 03/25/2008, 05/23/2003, 03/01/1997, Additional history exists Cervical Cancer Screening 2021 HPV/Co-Test 2021 Influenza Vaccine (FLU shot) (#1) 2023 Depression Screening 08/13/2024 08/13/2023 TSH 08/13/2024 08/13/2023 Hepatitis B Completed 04/30/1993, 10/15, 07/31/1992 MENINGOCOCCAL (MENACTRA/MENVEO) Aged Out 04/06/2007 No longer eligible based on patient's age to complete this topic GARDASIL-HPV IMMUNIZATION SERIES Aged Out No longer eligible based on patient's age to complete this topic Pneumococcal Vaccine: Pediatrics (0 to 5 Years) and At-Risk Patients (6 to 64 Years) Aged Out No longer eligible based on patient's age to complete this topic documented as of this encounter Medical Devices Not on filedocumented as of this encounter Care Teams Program Paraprofessional Relationship Specialty Start Date End Date Paula Jesus PA-C [address] [place] [address] PCP - General Physician Cardiac Exercise Physiologist 08/13/23 documented as of this encounter
--- NOTE | 2024-01-14 06:52 | Hospitalist Progress Note ---
Date of Service January 14, 2024 Assessment & Plan (1) Episode of syncope: Plan: - Prodromal symptoms consistent with vasovagal, but given cardiac history, there was concern for other cardiac cause and fever such as endocarditis vs pericarditis vs tick born disease vs autoimmune disorders. Based off her symptoms and prodrome, appears less likely to be neurologic in etiology. - Last TTE from 09/2023 : EF= 55-60%, prior TTE with LV function borderline with EF 45 to 50% and mild MR with borderline MV prolapse -Repeat TTE 01/13/2024: no significant changes from previous study. LVEF: 55- 60%. Normal LV size. Normal LV wall thickness. Trace MR. - EKG: on admission sinus rhythm with 1st degree A-V block with nonspecific T- wave abnormalities. -Repeat EKG 01/12 AM: Sinus bradycardia, rightwards axis. Nonspecific T wave abnormality no longer evident in Lateral leads -D.Dimer elevated at 4400 - CTA Chest indicated no evidence of PE - Venous Doppler Study showed no evidence of DVT - Orthostatic BPs negative - Labs: no electrolytes disturbances - TSH/T4: wnl - CRP: 1.63 - Lyme disease, Babesia, anaplasmosis: negative - THA pending, Blood culture/urine culture pending - Continue heart monitoring - Cardiology consult appreciated given patient's nonspecific T-wave abnormalities and unchanged ECHO findings. - Consider outpatient heart monitor after discharge (2) UTI (urinary tract infection): Plan: - Patient refers mild dysuria - UA: Leukocytes esterase, WBCs - Continue IV Ceftriaxone (3) Mitral regurgitation: Plan: - Present on prior TTE from 09/2023 - Repeat TTE done 01/13/2024 shows trace MR with no significant changes compared to previous study - Continue to monitor (4) H/O partial thyroidectomy: Plan: - TSH/T4 wnl - Continue Levothyroxine 50 mg daily Plan DVT: Low risk, ambulation Diet: Regular Disposition: Med/ Surg with Telemetry Admission and Anticipated Discharge Date Admission Date: January 13, 2024 Subjective Patient reports today that she is feeling better. No new concerns or changes overnight. Still with some lingering body aches, otherwise feeling great. She denies any fevers, chills, cough, chest pain, nausea, vomiting, light-headedness or dizziness. Appetite has been good and just had breakfast. Review of Systems Review of Systems: Negative except those stted in the hPI. Physical Exam Constitutional: WD/WN, vitals as above Respiratory: normal respiratory effort, lungs clear to auscultation Cardiovascular: RRR, no murmur, no edema Gastrointestinal (Abdomen): normal bowel sounds, soft, nontender, no hepatosplenomegaly Skin: no rashes, warm and dry Results & Data Results & Data Vital Signs (Past 12 Hours) Vital Signs Temp Pulse Pulse Resp BP Pulse Ox O2 Del Method 01/14/24 04:02 36.6 C 67 20 114/69 96 Room Air 01/13/24 23:37 54 L 01/13/24 23:20 36.7 C 70 20 103/65 97 Room Air 01/13/24 19:51 36.8 C 58 L 18 117/71 98 Room Air
[2024-01-14 07:40] LABS: Basophils # (auto) 0.03 K/uL (0.00-0.20); Basophils % (auto) 0.7 %; Eosinophils # (auto) 0.11 K/uL (0.00-0.50); Eosinophils % (auto) 2.5 %; Hematocrit (blood only) 42.1 % (37.0-47.0); Hemoglobin 13.9 g/dl (12.0-16.0); Immature Granulocytes # (auto) 0.01 K/uL (0.01-0.20); Immature Granulocytes % (auto) 0.2 %; Lymphocytes # (auto) 1.28 K/uL (1.20-3.40); Lymphocytes % (auto) 28.9 %; Mean Corpuscular Hemoglobin 29.5 pg (25.0-34.0); Mean Corpuscular Volume 89.4 fL (80.0-100.0); Mean Platelet Volume 10.4 fL (9.4-12.4); Monocytes # (auto) 0.49 K/uL (0.11-0.59); Monocytes % (auto) 11.1 %; Neutrophils # (auto) 2.51 K/uL (1.40-6.50); Neutrophils % (auto) 56.6 %; Platelet Count 186 K/uL (130-400); RDW Coefficient of Variation 12.1 % (11.5-14.5); RDW Standard Deviation 39.6 fL (36.4-46.3); Red Blood Count 4.71 M/uL (4.20-5.40); White Blood Count 4.43 K/ul (4.8-10.8)
[2024-01-14 07:47] LABS: Calcium 8.5 mg/dl (8.6-10.3); Creatinine Clr Calc Pharmacy 90.6 ml/min; Est GFR (African American) 118.4 ml/min; Est GFR (Non-African American) 102.2 ml/min; Magnesium 1.7 mg/dl (1.7-2.4); Potassium 4.2 mmol/L (3.5-5.1)
[2024-01-14 08:56] LABS: D Dimer 4220 ug/L FEU (0-500)
--- NOTE | 2024-01-14 09:51 | XCELERA ---
[id number] [id number]
[2024-01-14] MEDS: OPTIRAY 320 125ml IV ONE (11:18)
--- NOTE | 2024-01-14 11:26 | Ultrasound Report ---
BILATERAL LOWER EXTREMITY VENOUS DOPPLER HISTORY: Leg pain and D-dimer elevation COMPARISON STUDY: Left leg venous Doppler 06/21/2023. FINDINGS: There is normal compressibility, flow, and augmentation within the bilateral lower extremit y deep venous systems. IMPRESSION: No DVT within the right or left lower extremity. ACT 112: Negative or not required by law. Electronically signed by: Flynn Cobb M.D. 01/14/2024 11:11 AM
--- NOTE | 2024-01-14 11:27 | CT Scan Report ---
CHEST CTA for PULMONARY ARTERIES CT DOSE: 333.7 mGy.cm HISTORY: Elevated d-dimer. Shortness of breath. PE TECHNIQUE: Multiaxial CT images of the chest were performed following the intravenous administration of contrast to evaluate the pulmonary arteries. 3D/Maximal intensity projection images were also obta ined. Sagittal and coronal reformations were also reviewed. A dose lowering technique was utilized a dhering to the principles of ALARA. COMPARISON STUDY: None. FINDINGS: There is a normal caliber thoracic aorta with no evidence for dissection. There is no evide nce for pulmonary embolus. No pleural effusions. No pneumothorax. The liver and spleen are unremarkab le. No mediastinal or hilar lymphadenopathy. The central airways are patent. The lungs are clear. The left thyroid lobe appears surgically absent. IMPRESSION: No evidence for a pulmonary embolus. ACT 112: Negative or not required by law. Electronically signed by: Flynn Cobb M.D. 01/14/2024 11:25 AM
--- NOTE | 2024-01-14 15:41 | Discharge Summary ---
Date of Service January 14, 2024 Admission HPI Per Admitting Provider 33 year old female with a past medical history of mitral regurgitation, partial thyroidectomy presenting after syncopal episode. Was in normal health up until 1400 this afternoon. Started with subjective fever, body aches. Went to go up stairs this evening to take a COVID test. Stood up and felt lightheaded, vision went out and then LOC for about 30 seconds. witnessed. No urinary incontinence, tongue biting. Was clenching jaw. Tired after, but no post-ictal period. Was never had an event like this before. Get start her menstrual period today. Denies chest pain, dyspnea, nausea/vomiting, diarrhea. Crampy abdominal pain with period. Increased urinary frequency, but otherwise no urinary symptoms. In ED: UA consistent with UTI. EKG with NSR with 1st degree AV block- T wave inversions inferior and anterior leads- trop=6.4. Admission Exam Per Admitting Provider Constitutional: well-appearing, no acute distress HEENT: NCAT, no conjunctival injection CV: regular rhythm, no murmur appreciated, extremities well-perfused, no LE edema Resp: CTABL, no wheezes/rales/rhonchi appreciated, no increased work of breathing GI: soft, nondistended, nontender, No CVA tenderness MSK: no gross deformities appreciated Skin: warm, dry, no rash appreciated Neuro: alert, oriented, no focal neurologic deficit appreciated Principal Diagnosis Vasovagal syncope Discharge Exam Constitutional WD/WN, vitals as above ENMT external ear and nose normal, oropharynx normal Respiratory normal respiratory effort, lungs clear to auscultation Cardiovascular RRR, no murmur, no edema Gastrointestinal (Abdomen) normal bowel sounds, soft, nontender, no hepatosplenomegaly Skin no rashes, warm and dry Neurologic moves all extremities and awake Discharge Data Allergies Allergy/AdvReac Type Severity Reaction Status Date / Time erythromycin base AdvReac Intermediate Abdominal Verified 01/13/24 00:46 Pain Consultations 01/13/24 02:52 ED Decision to Admit Stat 01/14/24 12:59 Consult Cardiology Routine Ordered Studies Chest CTA 01/14/24 09:31 CHEST CTA for PULMONARY ARTERIES CT DOSE: 333.7 mGy.cm HISTORY: Elevated d-dimer. Shortness of breath. PE TECHNIQUE: Multiaxial CT images of the chest were performed following the intravenous administration of contrast to evaluate the pulmonary arteries. 3D/Maximal intensity projection images were also obtained. Sagittal and coronal reformations were also reviewed. A dose lowering technique was utilized adhering to the principles of ALARA. COMPARISON STUDY: None. FINDINGS: There is a normal caliber thoracic aorta with no evidence for dissection. There is no evidence for pulmonary embolus. No pleural effusions. No pneumothorax. The liver and spleen are unremarkable. No mediastinal or hilar lymphadenopathy. The central airways are patent. The lungs are clear. The left thyroid lobe appears surgically absent. IMPRESSION: No evidence for a pulmonary embolus. ACT 112: Negative or not required by law. Electronically signed by: Flynn Cobb M.D. 01/14/2024 11:25 AM Venous Doppler Study 01/14/24 09:42 BILATERAL LOWER EXTREMITY VENOUS DOPPLER HISTORY: Leg pain and D-dimer elevation COMPARISON STUDY: Left leg venous Doppler 06/21/2023. FINDINGS: There is normal compressibility, flow, and augmentation within the bilateral lower extremity deep venous systems. IMPRESSION: No DVT within the right or left lower extremity. ACT 112: Negative or not required by law. Electronically signed by: Flynn Cobb M.D. 01/14/2024 11:11 AM 01/14/24 09:31 CT angio chest PE protocol Stat 01/14/24 09:42 US venous doppler [facility] Urgent Hospital Course (1) Episode of syncope: (2) UTI (urinary tract infection): (3) Mitral regurgitation: (4) H/O partial thyroidectomy: Plan is a 33 year-old female with a PMH significant for mitral regurgitation, who presented at [facility] due to syncopal episode. Syncope - Vasovagal - Stood up and felt lightheaded, vision went out and then LOC for about 30 seconds. - EKG: nonspecific T-wave inversion abnormalities. - TTE 01/13/2024: no significant changes from previous study. LVEF: 55-60%. Trace MR. - CTA Chest indicated no evidence of PE - Venous Doppler Study showed no evidence of DVT - Orthostatic BPs negative - Cardio consulted d/t EKG changes with t wave inversions in inferior lead but normal troponin level - Agree that syncope likely vasovagal. - EKG changes non-specific Fever with EKG changes and syncope - - Lyme disease, Babesia, anaplasmosis: negative - THA ordered - pending - Blood cx neg. No urinary symptoms. - Received 2 doses of rocephin - no abx on discharge. - No fever during hospital stay. H/O partial thyroidectomy: - TSH/T4 wnl - Continue Levothyroxine 50 mg daily Total Time Total Time Spent Total Time Spent (In Minutes): <30 Discharge Plan Discharge Items Patient Disposition: Home - Self-Care Reason For Visit: SYNCOPAL EPISODE Discharge Diagnosis: Syncope event Activity: Resume your previous activity Non-emergency contact: Primary Care Provider Call non-emergency contact if: you have any medication questions and your symptoms worsen Follow-up/Referrals: Fidelina Duarte D.O. [Primary Care Provider] - Diet: Regular Addtl Attending Provider Instructions: You were admitted in the hospital due to a syncope event. All work up had been negative for any concern pathology. This seem to be secondary to a vaso vagal response. A Vaso vagal syncope happens when your body's ability to control blood pressure doesn't work as fast as it should be, causing you to pass out. This is usually secondary to fatigue, stress, emotional upset. You should follow with your PCP within a week of discharge Your medication list has been reviewed and reconciled upon discharge to ensure accuracy and continuity of care. An updated list of all your medications is included with your hospital discharge paperwork. Please review this list closely, and make note of any changes. Pending Studies at Discharge: No Stand-Alone Forms: My [facility], Smoking Cessation Medications and DC Order Prescriptions: Continued levothyroxine 50 mcg tablet 50 mcg PO DAILYBB norgestimate-ethinyl estradiol 0.18/0.215/0.25 mg-35 mcg (28) tablet 1 tab PO DAILY famotidine 20 mg tablet 20 mg PO DAILY PRN (Reason: HEARTBURN/INDIGESTION) Discharge Orders: Discharge Order (Routine); Ordered 01/14/24 Ordered By: Paul Warren Admission Data Admit Date/Time: 01/13/24 03:41 Attending Provider: Yamilet Nguyen Admit Provider: Orly Hylton Primary Care Provider: Fidelina Duarte Other Providers: Yobani Machuca; Royce Carlin Other Interventions: Discharge Summary Assessment (RN) Last Done: 01/14/24 15:56
[2024-01-14 16:47] LABS: Anti Nuclear Antibody Screen POSITIVE (NEGATIVE)
--- NOTE | 2024-01-14 22:26 | Cardiology Consultation ---
Date of Consultation January 14, 2024 Assessment & Plan (1) Syncope: 2. Transient T wave inversions on ECG 3. Palpitations -- PAC/PVCs 4. Mild mitral regurgitation with borderline MV prolapse 5. UTI Patient here with first episode of syncope in the setting of UTI. Patient back at baseline and no recurrence of presyncope. Prodromal symptoms consistent with vasovagal event. No arrhythmia on telemetry. Echo unchanged. Very low suspicion for ischemia despite transient T wave inversions. At this time feel no additional cardiac testing necessary. Discussed nature of vasovagal events. Encouraged avoiding triggers, maintaining adequate hydration. Also discussed counterpressure maneuvers if recurrent events. No need for additional cardiac meds. From a cardiac standpoint okay with discharge today. Can follow-up with cardiology as needed. History of Present Illness Attending Physician: Yamilet Nguyen MD History of Present Illness Ms. Davies ([place]) is a very pleasant 33-year-old woman seen today in hospital for syncopal event. She was previously seen by me in office in the setting of elevated heart rates, decreased exercise tolerance following COVID infection. At baseline healthy and active. Exercises regularly, 4 times a week ([employer] bike/strength/yoga). Had first COVID infection in May 2023. Post COVID symptoms lasted for months. Underwent echo showing low normal LV function with mild MR. Event monitor showed only PACs/PVCs. 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 Symptoms resolved and was back exercising regularly. Day of admit patient developed diffuse muscle aches/fatigue then while attempting to get up felt hot, nauseated, prolonged tunnel vision feeling and then feeling as if "heart rate slowing." Witnessed event by juliana. Had prolonged symptoms after regaining consciousness. On admit diagnosed with UTI. ECG showed sinus rhythm with new anterior inferior T wave inversions. HS TropI negative. No significant arrhythmia on telemetry. Repeat echo this morning showed preserved LV function unchanged from 09/2023. Currently feeling better. No presyncopal symptoms since admission. Recent cardiac testing: Echo EF 45 to 50%, mild MR with borderline prolapse, normal RA Event monitor 08/2023: 12 days, sinus rhythm, 32 up to 145, average 66, occasional PACs, occasional PVCs. 1 episode of skipped beat seem to correlate with PACs ECG 08/28/2023 sinus rhythm, ventricular rate 61, right axis deviation, no ST abnormalities, normal intervals, no ST abnormalities Past cardiac history: Murmur since age 20 had prior echo. Past medical history: History of partial thyroidectomy for benign nodule, reflux Family history: Cardiac issues involving multiple members of extended family. No premature CAD, SCD in immediate family Social history: Engaged. 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 Non-smoker. Drinks 1.5 cups of coffee a day. Maybe 3 glasses of wine a week. Non-smoker. Allergies Allergy/AdvReac Type Severity Reaction Status Date / Time erythromycin base AdvReac Intermediate Abdominal Verified 01/13/24 00:46 Pain Home Medications Medication Instructions Recorded Confirmed Type famotidine 20 mg tablet 20 mg PO DAILY PRN 06/21/23 01/13/24 History HEARTBURN/INDIGESTION levothyroxine 50 mcg tablet 50 mcg PO DAILYBB 06/21/23 01/13/24 History norgestimate-ethinyl estradiol 1 tab PO DAILY 06/21/23 01/13/24 History 0.18 mg/0.215mg/0.25mg-35 mcg(28)tablet Patient History Medical History (Updated 01/13/24 @ 18:26 by Vee Mathew DO) No pertinent past medical history Surgical History (Updated 01/13/24 @ 05:23 by Orly Hylton DO) H/O partial thyroidectomy Social History Smoking Status: Never smoker Second Hand Exposure: No; Do You Dip or Chew Tobacco: No; Hx Alcohol Use: Yes Hx Substance Use: No Preferred Language: Macedonian Communication Ability: Effective Delivery Driver/Supervisor Required: No Beliefs That Will Affect Care: None Current Living Situation: Significant Other Feels Safe at Home: Yes Assistive Devices: None Review of Systems Review of Systems: All systems reviewed & are unremarkable except as noted in HPI & below Physical Exam Physical Exam: General: Comfortable HEENT: Sclerae anicteric Lungs: Clear to auscultation bilaterally, no crackles or wheezes Cardiac: Regular rate and rhythm, no murmurs. Vascular: 2+ radial, DP pulses. No bruits Abdomen: Soft, nontender Extremities: Well perfused, no peripheral edema Neuro: Nonfocal Psych: Alert orient x3, normal affect and mood Results & Data Vital Signs (Past 12 Hours) Vital Signs Temp Pulse Pulse Resp BP Pulse Ox O2 Del Method 01/14/24 15:56 97.7 F 53 L 18 125/82 98 01/14/24 15:18 58 L 01/14/24 11:25 97.7 F 53 L 18 125/82 98 Room Air PG Care Time/CCT Total # of Minutes Spent Total Time Spent with Patient: Total time spent is greater than 50% in coordination of care (as documented) at patient's floor/unit and/or counseling patient: Coding Level of Care Code 51496 IN/OBS CONSULT LVL 4,60M Diagnoses Syncope R55 Syncope type: unspecified (1) Syncope Syncope type: unspecified Qualified Code(s): R55 - Syncope and collapse
[2024-01-15 09:22] LABS: ANA Pattern Nuclear, Speckled
--- NOTE | 2024-01-15 11:55 | Electrocardiogram Report ---
Test Reason : Blood Pressure : / mmHG Vent. Rate : 091 BPM Atrial Rate : 091 BPM P-R Int : 304 ms QRS Dur : 112 ms QT Int : 344 ms P-R-T Axes : 067 108 -45 degrees QTc Int : 423 ms Uncertain rhythm, consider atrial flutter with 2:1 AV conduction Rightward axis T wave abnormality, consider inferior ischemia Marked T wave abnormality, consider anterior ischemia Abnormal ECG When compared with ECG of 28-AUG-2023 14:48, (unconfirmed) Vent. rate has increased BY 30 BPM T wave inversion now evident in Inferior leads T wave inversion now evident in Anterior leads Confirmed by Keny Singleton ([id number]) on 01/15/2024 11:55:20 AM Referred By: REFERRED SELF Confirmed By:Keny Singleton
--- NOTE | 2024-01-15 12:20 | Electrocardiogram Report ---
Test Reason : Blood Pressure : / mmHG Vent. Rate : 053 BPM Atrial Rate : 053 BPM P-R Int : 188 ms QRS Dur : 092 ms QT Int : 452 ms P-R-T Axes : 067 105 029 degrees QTc Int : 424 ms Sinus bradycardia with sinus arrhythmia Rightward axis Borderline ECG When compared with ECG of 13-JAN-2024 07:46, (unconfirmed) No significant change was found Confirmed by Keny Singleton ([id number]) on 01/15/2024 12:20:06 PM Referred By: REFERRED SELF Confirmed By:Keny Singleton
[2024-01-15 17:57] LABS: Babesia microti DNA Not Detected (Not Detected)
--- OUTSIDE RECORDS SUMMARY | 2024-01-16 14:10 | External Medical Summary | Summary of Care ---
Author Name Unknown Organization [facility] Address [address] [place] [address] Care Team Providers Care Drug Safety Associate Name Role Phone Paula Jesus PA-C Primary Care Provide r Reason for Visit * Reason Onset Date Comments Emergency Department Follow-Up 01/14/2024 Encounter Details Date Type Department Care Team (Late st Contact Info) Description 01/14/2024 Telephone Family Medicine, [facility] [address] [facility] [address] [place] [phone] Paula Jesus PA-C [address] [place] [address] Emergency Department Follow-Up Allergies Active Allergy Reactions Criticality Noted Date Comments Erythromycin 12/17/2001 severe stomach cramps documented as of this encounter (statuses as of 01/14/2024) Medications Medication Sig Dispensed Refills Start Date End Date Status Famotidine 20 MG Oral Tablet (Pepcid)Indications:U nspecified abdominal pain TAKE 1 TABLET BY MOUTH EVERYDAY AT BEDTIME Strength: 20 mg 90 Tablet 3 10/22/2022 Active Norgestim-Eth Estrad Triphasic 0.18/0.215/0.25 MG-35 MCG Oral TabletIndications:Enc ounter for general adult medical examination without abnormal findings Take 1 Tablet by mouth in the morning. 84 Tablet 1 08/27/2023 Active Levothyroxine Sodium 50 MCG Oral Tablet (Levoxyl) TAKE 1 TABLET BY MOUTH ONCE DAILY 30 Tablet 11 10/26/2023 Active documented as of this encounter (statuses as of 01/14/2024) Immunizations Name Administration Dates Next Due Meningococcal [...] encounter Miscellaneous Notes * Telephone Encounter - Suad Tillman OSA - 01/14/2024 8:28 AM EDT LMTCB if pt would like to set-up a follow up appointment in the office after yesterdays ER visit @ [facility]. documented in this encounter Plan of Treatment Upcoming Encounters Date Type Department Care Team (Late st Contact Info) Description 08/15/2024 11:30 AM EST Office Visit Family Medicine, [facility] [address] [facility] [address] [place] [phone] Paula Jesus PA-C [address] [place] [address] Health Maintenance Due Date Last Done Comments HIV Screening 2006 Hepatitis C Screening 2009 Pap Smear 2012 DTaP,Tdap,and Td Vaccines (7 - Td or Tdap) 03/25/2018 03/25/2008, 05/23/2003, 03/01/1997, Additional history exists Cervical Cancer Screening 2021 HPV/Co-Test 2021 COVID-19 Vaccine ( season) 2023 Influenza Vaccine (FLU shot) (Season Ended) 2024 Depression Screening 08/13/2024 08/13/2023 TSH 08/13/2024 08/13/2023 [...] filedocumented as of this encounter Care Teams Drug Safety Associate Relationship Specialty Start Date End Date Paula Jesus PA-C [address] [place] [id number] PCP - General Physician [employer]ter 08/13/23 documented as of this encounter
--- NOTE | 2024-01-17 18:44 | Electrocardiogram Report ---
Test Reason : Blood Pressure : / mmHG Vent. Rate : 055 BPM Atrial Rate : 055 BPM P-R Int : 182 ms QRS Dur : 090 ms QT Int : 478 ms P-R-T Axes : 072 107 041 degrees QTc Int : 457 ms Sinus bradycardia Rightward axis Borderline ECG When compared with ECG of 12-JAN-2024 23:39, (unconfirmed) TN interval has decreased Vent. rate has decreased BY 36 BPM Nonspecific T wave abnormality has replaced inverted T waves in Inferior leads Nonspecific T wave abnormality no longer evident in Lateral leads Confirmed by Keny Singleton ([id number]) on 01/17/2024 6:44:01 PM Referred By: REFERRED SELF Confirmed By:Keny Singleton
== END 2024-01-14 16:35 | disposition home or self-care (01) ==
LOC: EDINP 23:25 → ED 23:25 → SUATTDRO 01-13 03:41 → 2N 01-13 15:15